=== PATIENT | female | born 1955 | race Caucasian/White ===

== ENCOUNTER 2018-09-08 21:43 | Emergency (ER) | payer OTHER ==
[~2018-09-08] VITALS: Ht 162.6 cm; Wt 61.2 kg
--- NOTE | ~2018-09-08 | EKG ---
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 : 1955 Requested By: Oh Marie Order Number: [id number] MD: Dilshad Trotter Measurements Intervals [place] Rate: 91 P: 55 TX: 189 QRS: -11 QRSD: 85 T: 21 QT: 391 QTc: 482 Interpretive Statements Sinus rhythm No significant abnormality Compared to ECG 06/10/2014 08:25:36 No significant changes Electronically Signed On 09-09-2018 8:08:12 [employer] by Dilshad Trotter [email or web address] <ELECTRONICALLY SIGNED> By: Dilshad Trotter MD, [facility] 09/09/18 [id number] Dilshad Trotter MD, FACC /EPI
[~2018-09-08 21:43] MED LIST: ACETAMINOPHEN325 M1 PO; ANTI-DIARRHEA2 MG PO; BACTRIM DS TAB1 EACH PO; ENOXAPARIN30 MG/0.1; FENTANYL PA25 MCG/HR; FLUCONAZOLE 10100 MG PO; HYDROCODON-ACE1 EAC7 PO; LISINOPRIL20 MG; LOPERAMIDE 2 MG2 M1 PO; OXYCODONE HCL 55 MG PO; OXYCONTIN10 M1 PO; PRILOSEC 20 MG20 MG PO; SILVADENE20 GM; TRANSDERM-SCOP1 EACH TRANSDERM; XANAX 0.5 MG0.5 M1 PO; XARELTO10 MG; ZOFRAN ODT4 MG PO
[2018-09-08 22:08] LABS: HEMOGLOBIN 13.3 gm/dL (12.0-15.0); MCH 31.1 pg (26.0-34.0); MCHC 34.1 g/dL (28.0-37.0); MCV 91.3 fL (80.0-100.0); RBC 4.27 mil/uL (4.20-5.00); RDW 15.5 % (10.5-14.5); WBC 16.1 thou/uL (4.0-11.0)
[2018-09-08 22:12] LABS: ANION GAP 10 mmol/L (7-16); BUN 22 mg/dL (7-18); CALCIUM 9.6 mg/dL (8.5-10.1); CHLORIDE 98 mmol/L (98-107); CO2 29 mmol/L (21-32); CREATININE 0.9 mg/dL (0.6-1.0); GLUCOSE 127 mg/dL (74-106); POTASSIUM 3.2 mmol/L (3.5-5.1); SODIUM 137 mmol/L (136-145)
[2018-09-08 22:21] LABS: TROPONIN-I <0.06 ng/mL (<0.06)
[2018-09-08 22:55] LABS: APTT 24.3 Seconds (24.5-32.8); PROTIME 9.5 Seconds (9.3-11.4)
[2018-09-08 23:10] VITALS: BP 182/104
== END 2018-09-08 23:21 | disposition short-term general hospital (02) ==
LOC: ER 21:43
PROVIDERS: Emergency Medicine
DX: S06.6X0A Traumatic subarachnoid hemorrhage without loss of consciousness, initial encounter (principal); R42 Dizziness and giddiness; F41.9 Anxiety disorder, unspecified; Z91.040 Latex allergy status; Z88.5 Allergy status to narcotic agent; Z98.890 Other specified postprocedural states; Z85.048 Personal history of other malignant neoplasm of rectum, rectosigmoid junction, and anus; W18.39XA Other fall on same level, initial encounter; Y92.89 Other specified places as the place of occurrence of the external cause; Y93.89 Activity, other specified; Y99.8 Other external cause status